=== PATIENT | female | born 1965 ===

== ENCOUNTER 2017-10-21 21:09 | Emergency (ER) | payer BC, MEDICAID ==
[2017-10-21 21:33] VITALS: RESP 20
[2017-10-21] MEDS ORDERED: Sodium Chloride 0.9% 1,000 ML IV ONE (21:46)
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
[2017-10-21] MEDS ORDERED: Morphine 4 MG/ML VIAL ONE (22:07)
[2017-10-21] MEDS ORDERED: Sodium Chloride 0.9% 1,000 ML ONE (22:08)
[2017-10-21] MEDS ORDERED: Iohexol 300 100 ML IJ ONE (22:10)
[2017-10-21 22:11] LABS: BASO # 0.1 K/uL (0.0-0.2); BASO % 0.4 % (0.0-2.0); EOS # 0.4 K/uL (0.0-0.7); EOS % 2.6 % (0.0-4.0); HEMOGLOBIN 14.5 g/dL (11.0-16.0); LYMPH # 2.7 K/uL (1.0-4.3); LYMPH % 19.1 % (20.0-40.0); MEAN CELL VOLUME 89.2 fL (81.0-99.0); MEAN CORPUSCULAR HEMOGLOBIN 30.1 pg (27.0-31.0); MEAN CORPUSCULAR HGB CONC 33.8 g/dL (33.0-37.0); MEAN PLATELET VOLUME 8.4 fL (7.2-11.7); MONO # 0.5 K/uL (0.0-0.8); MONO % 3.5 % (0.0-10.0); NEUT # 10.6 K/uL (1.8-7.0); NEUT % 74.4 % (50.0-75.0); RBC 4.8 Mil/uL (3.80-5.20); RED CELL DISTRIBUTION WIDTH 13.1 % (11.5-14.5); WHITE BLOOD COUNT 14.3 K/uL (4.8-10.8)
[2017-10-21 22:20] LABS: PROTHROMBIN TIME 10.8 SECONDS (9.7-12.2)
[2017-10-21 22:21] LABS: ALB/GLOB RATIO 1.3 (1.0-2.1); ALBUMIN 4.5 g/dL (3.5-5.0); ALT/SGPT 71 U/L (9-52); AST/SGOT 46 U/L (14-36); BLOOD UREA NITROGEN 16 mg/dL (7-17); CALCIUM 9.4 mg/dl (8.6-10.4); GFR AFRICAN-AMERICAN > 60; GFR NON-AFRICAN AMERICAN > 60; LIPASE 69 U/L (23-300)
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
[2017-10-22 00:47] VITALS: BP 123/82; PULSE 88; TEMP 98; O2SAT 99
--- NOTE | 2017-10-22 08:41 | RAD ---
Chest x-ray single frontal view History: Abdominal pain. Comparison: None available. Findings: Mild venous congestion. Right hilar prominence. Mild patchy increased markings at the left lung base. Heart size within normal limits. Impression: Mild venous congestion. Right hilar prominence. Mild patchy increased markings at the left lung base.
--- NOTE | 2017-10-24 12:22 | CARD ---
APPROVED REPORT EKG Measurement Heart [id number] <Conclusion> Normal sinus rhythm Moderate voltage criteria for LVH, may be normal variant Nonspecific T wave abnormality Abnormal ECG
== END 2017-10-22 01:07 | disposition home or self-care (01) ==
LOC: C.ER 21:09
DX: R10.9 Unspecified abdominal pain (principal); V43.52XA Car driver injured in collision with other type car in traffic accident, initial encounter; Y92.410 Unspecified street and highway as the place of occurrence of the external cause
CPT/HCPCS: 71045; 71260; 74177; 80053; 83690; 85025; 85610; 85730; 86850; 86900; 93005; 96361; 96374; 96375; 96376; 99285; J1885; J2270; J2405; J7040; Q9967

== ENCOUNTER 2018-04-04 19:34 | Emergency (ER) | payer BC, MEDICAID ==
[2018-04-04 19:34] VITALS: BMI 35.9
--- NOTE | 2018-04-04 20:54 | C.PDOC ---
History Of Present Illness 53 year old female presents to the emergency department with complaints of lower back pain worse with heating pads and icy rubs. Patient reports that she has not taken NSAIDs, and she denies any weakness or numbness of her legs. Time Seen by Provider: 04/04/18 19:46 Chief Complaint (Nursing): Back Pain History Per: Patient History/Exam Limitations: no limitations Onset/Duration Of Symptoms: Days Current Symptoms Are (Timing): Still Present Quality Of Discomfort: "Pain" Previous Symptoms: Back Pain Past Medical History Reviewed: Historical Data, Nursing Documentation, Vital Signs Vital Signs: Last Vital Signs Temp 98.6 F 04/04/18 19:41 Pulse 84 04/04/18 19:41 Resp 18 04/04/18 19:41 BP 129/90 04/04/18 19:41 Pulse Ox 97 04/04/18 21:02 - Medical History PMH: Asthma Surgical History: No Surg Hx Family History: States: No Known Family Hx - Social History Hx Alcohol Use: No Hx Substance Use: No - Immunization History Hx Tetanus Toxoid Vaccination: No Hx Influenza Vaccination: No Hx Pneumococcal Vaccination: No Review Of Systems Except As Marked, All Systems Reviewed And Found Negative. Musculoskeletal: Positive for: Back Pain (lower) Neurological: Negative for: Weakness, Numbness Physical Exam - Physical Exam Appears: Non-toxic, In Acute Distress (moderate), Other (morbidly obese) Skin: Warm, Dry Head: Atraumatic, Normacephalic Eye(s): bilateral: Normal Inspection Nose: Normal Neck: Normal, Supple Chest: Symmetrical, No Tenderness Cardiovascular: Rhythm Regular, No Murmur Respiratory: Normal Breath Sounds, No Rales, No Rhonchi, No Wheezing Gastrointestinal/Abdominal: Normal Exam, Soft, No Tenderness, No Guarding, No Rebound Back: Other (tenderness to bilateral sacroiliac area) Neurological/Psych: Oriented x3, Normal Speech, Normal Cognition ED Course And Treatment O2 Sat by Pulse Oximetry: 97 (RA) Pulse Ox Interpretation: Normal Progress Note: ice, toradol IM Reevaluation Time: 21:23 Reassessment Condition: Improved Medical Decision Making Medical Decision Making: Plan: Toradol 60mg IM low back pain, muscular no neuropathy, no weakness/parasthesias Disposition Doctor Will See Patient In The: Office Counseled Patient/Family Regarding: Studies Performed, Diagnosis - Disposition Referrals: Shaik Li MD [Primary Care Provider] - Disposition: HOME/ ROUTINE Disposition Time: 21:23 Condition: GOOD Forms: [facility] (Kazakh) - Clinical Impression Clinical Impression: Low back pain - Scribe Statement The provider has reviewed the documentation as recorded by the Scribe (Randall Nicolas) Provider Attestation: All medical record entries made by the Scribe were at my direction and personally dictated by me. I have reviewed the chart and agree that the record accurately reflects my personal performance of the history, physical exam, medical decision making, and the department course for this patient. I have also personally directed, reviewed, and agree with the discharge instructions and disposition.
[2018-04-04 21:33] VITALS: BP 112/72; PULSE 68; RESP 16; TEMP 98.5; O2SAT 100
== END 2018-04-04 21:36 | disposition home or self-care (01) ==
LOC: C.ER 19:34 → SUPCPDRO 19:34 → C.ER 21:36
DX: M54.5 Low back pain (principal)
CPT/HCPCS: 96372; 99283; J1885